=== PATIENT | male | born 1990 | race Caucasian/White ===

== ENCOUNTER 2018-04-06 23:32 | Inpatient (IN) | payer MEDICAID ==
[~2018-04-06] VITALS: Ht 177.8 cm; Wt 77.3 kg
--- NOTE | ~2018-04-06 | OP ---
PATIENT NAME: ANTONIO MEJIA MEDICAL RECORD: [id number] LOCATION:[id number] ADMISSION DATE:04/07/18 SURGEON: KOBE MCMAHON MD DATE OF OPERATION: 04/07/2018 PREOPERATIVE DIAGNOSIS: Flexor tenosynovitis, right hand long finger, with deep infection. POSTOPERATIVE DIAGNOSIS: Flexor tenosynovitis, right hand long finger, with deep infection. PROCEDURE: Excisional debridement of flexor tenosynovitis, right hand long finger. SURGEON: Kobe Mcmahon MD ANESTHESIA: General. INTRAOPERATIVE COMPLICATIONS: None. SUMMARY OF PATHOLOGIC FINDINGS: The patient had gross purulence in the flexor tendon sheath that communicated with the wound of the hand at the MCP junction. OPERATIVE SUMMARY IN DETAIL: After obtaining the appropriate preoperative orthopedic surgery consent as well as anesthetic consultation, evaluation, and clearance, the patient was brought to the operating room and placed on the operating table in supine position. After adequate general laryngeal mask airway was administered, tourniquet was placed about the proximal aspect of the right upper extremity. Right upper extremity was then prepped and draped in routine sterile fashion. Arm was elevated and exsanguinated. Tourniquet was inflated to 250 mmHg. On initial incision across the area of the wound, gross purulence was noted. Cultures were taken. A volar zigzag incision was made to the DIP joint and down to the palmar aspect and completely opened up. The A2 delfin was left intact with only a small incision made for debridement. The volar plate was also left intact. The A1 delfin was released in its entirety. An 18-gauge Angiocath was utilized to irrigate the entire tendon sheath along with the bulb syringe irrigation. [place]geur was utilized to debride all nonviable-appearing tissue. Having completed this, the volar zigzag incision was gently reapproximated with simple 4-0 Prolene sutures. It was not closed tight. Sterile dressings were applied. Tourniquet was deflated. The patient was awakened and taken to recovery in stable condition. All final needle and sponge counts were correct. TRANSINT:[id number] Voice Confirmation ID: [id number] DOCUMENT ID: [id number] KOBE MCMAHON MD at 0941 CC: [id number] DICTATION DATE: 04/07/18 165 MARINE INSULATOR: 04/07/18 190 ADM IN [facility] [address] [id number]
[~2018-04-06 23:32] MED LIST: HYDROCODONE-APA1 TAB PO
[2018-04-07 00:16] LABS: BASOPHILS 0.3 % (0-2); EOSINOPHILS 1.6 % (0-7); HEMATOCRIT 40.6 % (42.0-54.0); IMMATURE GRANULOCYTES 0.3 % (0-5); LYMPHOCYTES 30.9 % (15-50); MCH 32.4 pg (26.0-34.0); MCHC 34.5 g/dL (31.0-37.0); MONOCYTES 6.8 % (2-11); NEUTROPHILS 60.1 % (40-80); PLATELET COUNT 287 10x3/uL (130-400); RBC 4.32 10x6/uL (4.20-6.10); RDW 12.9 % (11.5-14.5); WBC 11.5 10x3/uL (4.8-10.8)
[2018-04-07 00:26] LABS: ALKALINE PHOSPHATASE 72 U/L (46-116); ALT (SGPT) 13 U/L (10-68); BILIRUBIN - TOTAL 0.36 mg/dL (0.2-1.3); CALC OSMOLALITY 278 mosm/kg (275-300); CALCIUM 9.4 mg/dL (8.5-10.1); CARBON DIOXIDE 32.3 mmol/L (21.0-32.0); CHLORIDE - SERUM 102 mmol/L (98-107); CREATININE - SERUM 1.2 mg/dL (0.6-1.3); GLUCOSE 98 mg/dL (74-106); POTASSIUM - SERUM 4.2 mmol/L (3.5-5.1); PROTEIN - SERUM 8.1 g/dL (6.4-8.2); SODIUM 140 mmol/L (136-145); UREA NITROGEN 12 mg/dL (7-18); eGFR NON AFRICAN AMERICAN 77 mL/min (90-120)
[2018-04-07 03:52] VITALS: BP 116/69; BMI 24.4
[2018-04-07 08:09] VITALS: Ht 177.8 cm; Wt 77.3 kg
[2018-04-07 09:03] VITALS: BP 100/68
[2018-04-07 14:16] VITALS: BP 134/90
[2018-04-07 20:00] VITALS: BP 107/65
[2018-04-08 06:07] VITALS: BP 99/52
[2018-04-08 09:07] VITALS: BP 106/75
[2018-04-08 13:13] VITALS: BP 110/69
[2018-04-08 16:23] VITALS: BP 114/72
[2018-04-08 20:00] VITALS: BP 110/63
[2018-04-09 04:00] VITALS: BP 97/57
[2018-04-09 17:14] VITALS: BP 110/56
[2018-04-10 08:59] VITALS: BP 112/70
[2018-04-10] MEDS ORDERED: PERCOCET 10/3251 TA1 PO (09:26)
[2018-04-10] MEDS ORDERED: VIBRAMYCIN 100100 MG PO (09:26)
[2018-04-10 09:57] LABS: HEMATOCRIT 41.2 % (42.0-54.0); HEMOGLOBIN 14.1 g/dL (13.5-17.5); MCH 32.3 pg (26.0-34.0); MCHC 34.2 g/dL (31.0-37.0); MCV 94.3 fL (80.0-100.0); MEAN PLATELET VOLUME 8.9 fL (7.4-10.4); RBC 4.37 10x6/uL (4.20-6.10); RDW 12.2 % (11.5-14.5); WBC 4.4 10x3/uL (4.8-10.8)
[2018-04-10 13:09] VITALS: BP 110/68
== END 2018-04-10 15:01 | DRG 982 ==
LOC: D.ER 23:32 → D.EDHOLD 04-07 00:24 → D.MS 04-07 00:24 → D.SDCHOLD 04-09 08:13 → D.MS 04-09 08:15
PROVIDERS: Emergency Medicine; Orthopaedic Surgery
PROC: 0LB70ZZ Excision of Right Hand Tendon, Open Approach (ICD-10-PCS; principal; 2018-04-07 12:00)
DX: L03.011 Cellulitis of right finger (principal); L02.511 Cutaneous abscess of right hand; M65.141 Other infective (teno)synovitis, right hand; B95.61 Methicillin susceptible Staphylococcus aureus infection as the cause of diseases classified elsewhere